=== PATIENT | female | born 1960 | race Caucasian/White ===

== ENCOUNTER → 2018-09-24 14:29 | Outpatient (CLI) | payer OTHER, SELFPAY ==
--- NOTE | 2018-09-24 | DI.MG.S_ITS ---
BILATERAL DIGITAL SCREENING MAMMOGRAM 3D/2D WITH CAD: 09/24/2018 CLINICAL: Routine screening. Comparison is made to exams dated: 11/24/2016 mammogram, 11/02/2015 mammogram, and 08/11/2014 mammogram - [facility]. The tissue of both breasts is heterogeneously dense. This may lower the sensitivity of mammography. Current study was also evaluated with a Computer Aided Detection (CAD) system. No significant masses, calcifications, or other findings are seen in either breast. There has been no significant interval change. IMPRESSION: NEGATIVE There is no mammographic evidence of malignancy. A 1 year screening mammogram is recommended. This exam was interpreted at Station ID: [id number]. NOTE: For mammograms, a report in lay terms will be sent to the patient. Approximately 15% of breast malignancies will not be visualized mammographically. In the management of a palpable breast mass, a negative mammogram must not discourage biopsy of a clinically suspicious lesion. Electronically Signed By: Humberto nation/oli:09/24/2018 16:54:14 letter sent: Normal Exam ACR BI-RADS Category 1: Negative 3341F
== END ==
PROVIDERS: PCP Nurse Practitioner Family; Visit Provider Nurse Practitioner Family
DX: Z12.31 Encounter for screening mammogram for malignant neoplasm of breast (principal)
CPT/HCPCS: 77063; 77067

== ENCOUNTER 2019-06-13 14:11 | Day surgery (SDC) | payer OTHER, SELFPAY ==
--- NOTE | 2019-06-13 08:15 | PM.OP.ENDO ---
Operative Date/Time/Diagnoses Date of procedure: 06/13/19 Time of procedure: 15:43 Pre-op diagnosis: 1. Family history of colon cancer 2. Colon cancer screening Post-op diagnosis: other (1. Normal colonoscopy, 2. External hemorrhoids) Procedure & Clinicians Study performed: Colonoscopy Same procedure as scheduled: Yes Indications: 1. Family history of colon cancer 2. Screening for colon cancer Surgeon: Mary Solomon Procedure Notes SCOAP/Timeout: 3:43 p.m. Procedure in detail: ENDOSCOPIST: Mary Solomon MD Sedation RN: Rajendra Rutherford RN Sedation start time: 3:44 p.m. Sedation end time: 4:10 p.m. PROCEDURE: Colonoscopy INDICATIONS: 1. Family history of colon cancer 2. Screening for colon cancer MEDICATION: Levsin 0.125 mg sublingual, incremental doses of Versed and fentanyl until appropriate level sedation achieved. ASA CLASS: 2 CECAL WITHDRAWAL TIME: 9 minutes COMPLICATIONS: None. EXTENT OF PROCEDURE: Cecum. QUALITY OF PREP: Good with portions of liquid stool. PROCEDURE: Prior to insertion of the colonoscope, a digital rectal examination was accomplished with circumferential palpation of the distal rectal mucosa, a large nonthrombosed external hemorrhoid was seen at the 6 o'clock position. The high-definition colonoscope was passed into the rectum in the usual fashion and advanced over to the cecum without difficulty. The ileocecal valve, appendiceal stoma, and medial wall all could be inspected and no abnormalities were seen. ASCENDING COLON: As the colonoscope was withdrawn, care was taken to expose and inspect the haustral folds and no abnormalities were seen. HEPATIC FLEXURE: Normal no polyps, diverticula, or other abnormalities. TRANSVERSE COLON: Normal no polyps, diverticula, or other abnormalities. DESCENDING COLON: Normal no polyps, diverticula, or other abnormalities. SIGMOID COLON: Normal no polyps, diverticula, or other abnormalities. RECTUM: Normal. J maneuver was produced. There was no significant perianal disease. The J maneuver was broken. The remainder of the rectum was inspected and there was no internal hemorrhoid disease. The scope was withdrawn. IMPRESSION: 1. Normal colonoscopy 2. External hemorrhoid, nonthrombosed, 6 o'clock position PLAN: 1. Repeat colonoscopy in 5 years secondary to family history of colon cancer. The possibility of a missed lesion including a malignancy has been discussed with the patient previously. Potential alarm symptoms have been discussed and should be reported immediately. Scope withdrawal time: 9 Sedation minutes: 26 Specimen(s): none sent Complications: none Impression: as above. Post-procedure Recommendations: Colonscopy in 5 years Follow up: as needed Disposition: PACU
[2019-06-13 14:30] VITALS: BP 110/70; PULSE 66; RESP 16; TEMP 36.6; O2SAT 100; BMI 29.1
[2019-06-13] MEDS: HYOSCYAMINE 0.125 MG TABLET PO (14:45)
[2019-06-13] MEDS: SODIUM CHLORIDE 0.9% 1,000 ML 200 ML IV (14:45)
[2019-06-13] MEDS: MIDAZOLAM 5 MG/ML VIAL 1 MG IV (15:42)
[2019-06-13] MEDS: fentaNYL 250 MCG/5 ML INJ IV (15:43)
[2019-06-13 16:23] VITALS: BP 96/57; PULSE 60; RESP 10; TEMP 36.4; O2SAT 93
[2019-06-13 16:24] VITALS: BP 94/56; PULSE 58; RESP 7; O2SAT 97
[2019-06-13 16:28] VITALS: BP 91/54; PULSE 57; RESP 14; O2SAT 100
[2019-06-13 16:31] VITALS: BP 100/46; PULSE 58; RESP 12; O2SAT 99
[2019-06-13 16:47] VITALS: BP 98/57; PULSE 57; RESP 14; TEMP 36.4; O2SAT 98
== END 2019-06-13 16:53 | disposition home or self-care (01) ==
PROVIDERS: PCP Nurse Practitioner Family; Referring Provider Student in an Organized Health Care Education/Training Program; Visit Provider Student in an Organized Health Care Education/Training Program
PROC: 0DJD8ZZ Inspection of Lower Intestinal Tract, Via Natural or Artificial Opening Endoscopic (ICD-10-PCS; CPT 45378; principal; 2019-06-13 16:00)
DX: Z12.11 Encounter for screening for malignant neoplasm of colon (principal); Z80.0 Family history of malignant neoplasm of digestive organs; K64.4 Residual hemorrhoidal skin tags
CPT/HCPCS: 45378; J2250; J3010

== ENCOUNTER → 2020-07-30 10:09 | Outpatient (CLI) | payer OTHER, SELFPAY ==
--- NOTE | 2020-07-30 | DI.US.S_ITS ---
PROCEDURE: US ABDOMEN LIMITED INDICATIONS: Asymptomatic menopausal state, LEFT FLANK MASS TECHNIQUE: Real-time focused scanning was performed of the abdomen, with image documentation. COMPARISON: None. FINDINGS: Scanning is performed at the area of clinical concern involving the left lower rib region. At this site, there is an ovoid lesion within the subcutaneous fat without abnormal vascularity that measures 2.2 x 0.8 x 0.7 cm. This lesion is slightly hyperechoic to the normal surrounding subcutaneous fat. IMPRESSION: These imaging findings are most compatible with a lipoma at the site of clinical concern. Dictated by: Marcos Lopez M.D. on 07/30/2020 at 10:07 Approved by: Marcos Lopez M.D. on 07/30/2020 at 10:08
--- NOTE | 2020-07-30 | DI.RAD.S_ITS ---
PROCEDURE: XR DEXA AXIAL SKELETON INDICATIONS: Asymptomatic menopausal state COMPARISON: None. FINDINGS: This blank DEXA report has been sent in error by the PACS system. The correct and complete report will be forthcoming in 1-2 days. Thank you for your patience and understanding. Dictated by: Devora Hernandez MD, PhD on 07/30/2020 at 13:28 Approved by: Devora Hernandez MD, PhD on 07/30/2020 at 13:28
== END ==
PROVIDERS: PCP Student in an Organized Health Care Education/Training Program; Referring Provider Student in an Organized Health Care Education/Training Program; Visit Provider Student in an Organized Health Care Education/Training Program
DX: R19.02 Left upper quadrant abdominal swelling, mass and lump (principal); Z78.0 Asymptomatic menopausal state
CPT/HCPCS: 76705; 77080

== ENCOUNTER → 2022-02-21 13:16 | Outpatient (CLI) | payer OTHER, SELFPAY ==
--- NOTE | 2022-02-21 | DI.MG.S_ITS ---
BILATERAL DIGITAL SCREENING MAMMOGRAM 3D/2D WITH CAD: 02/21/2022 CLINICAL: Routine screening. Comparison is made to exams dated: 07/13/2020 mammogram - [facility], 09/24/2018 mammogram, and 11/24/2016 mammogram - [facility]. Both breasts are heterogeneously dense, which may obscure small masses (category c / 51-75% glandular tissue). Current study was also evaluated with a Computer Aided Detection (CAD) system. No significant masses, calcifications, or other findings are seen in either breast. There has been no significant interval change. IMPRESSION: NEGATIVE There is no mammographic evidence of malignancy. A 1 year screening mammogram is recommended. Based on the Tyrer Cuzick model (a risk assessment model) the patient's lifetime risk is 7.7% and her 10 year risk is 3.6%. According to the ACR, ACS, and NCCN guidelines, an annual breast MRI exam along with mammogram is recommended if the patient's lifetime risk is 20% or greater. This exam was interpreted at Station ID: [id number]. NOTE: For mammograms, a report in lay terms will be sent to the patient. Approximately 15% of breast malignancies will not be visualized mammographically. In the management of a palpable breast mass, a negative mammogram must not discourage biopsy of a clinically suspicious lesion. Electronically Signed By: Ximena wong/oli:02/21/2022 13:40:13 letter sent: Normal Exam ACR BI-RADS Category 1: Negative 3341F
== END ==
PROVIDERS: PCP Internal Medicine; Referring Provider Internal Medicine; Visit Provider Internal Medicine
DX: Z12.31 Encounter for screening mammogram for malignant neoplasm of breast (principal)
CPT/HCPCS: 77063; 77067

== ENCOUNTER → 2023-03-28 08:57 | Outpatient (CLI) | payer MEDICARE, SELFPAY ==
--- NOTE | 2023-03-28 | DI.MG.S_ITS ---
BILATERAL DIGITAL SCREENING MAMMOGRAM 3D/2D WITH CAD: 03/28/2023 CLINICAL: Routine screening. Comparison is made to exams dated: 02/21/2022 mammogram - [facility], 07/13/2020 mammogram - [facility], and 09/24/2018 mammogram - [facility]. Both breasts are heterogeneously dense, which may obscure small masses (category c / 51-75% glandular tissue). Current study was also evaluated with a Computer Aided Detection (CAD) system. No significant masses, calcifications, or other findings are seen in either breast. There has been no significant interval change. IMPRESSION: NEGATIVE There is no mammographic evidence of malignancy. A 1 year screening mammogram is recommended. Based on the Tyrer Cuzick model (a risk assessment model) the patient's lifetime risk is 7.4% and her 10 year risk is 3.6%. According to the ACR, ACS, and NCCN guidelines, an annual breast MRI exam along with mammogram is recommended if the patient's lifetime risk is 20% or greater. This exam was interpreted at Station ID: [id number]. NOTE: For mammograms, a report in lay terms will be sent to the patient. Approximately 15% of breast malignancies will not be visualized mammographically. In the management of a palpable breast mass, a negative mammogram must not discourage biopsy of a clinically suspicious lesion. Electronically Signed By: Ximena wong/oli:03/30/2023 16:14:33 letter sent: Normal Exam ACR BI-RADS Category 1: Negative 3341F
== END ==
PROVIDERS: PCP Internal Medicine; Referring Provider Internal Medicine; Visit Provider Internal Medicine
DX: Z12.31 Encounter for screening mammogram for malignant neoplasm of breast (principal)
CPT/HCPCS: 77063; 77067

== ENCOUNTER → 2024-05-18 08:00 | Outpatient (CLI) | payer MEDICARE, SELFPAY ==
--- NOTE | 2024-05-18 | DI.MG.S_ITS ---
BILATERAL DIGITAL SCREENING MAMMOGRAM 3D/2D WITH CAD: 05/18/2024 CLINICAL: Routine screening. Comparison is made to exams dated: 03/28/2023 mammogram, 02/21/2022 mammogram - [facility], and 07/13/2020 mammogram - [facility]. There are scattered areas of fibroglandular density (category b / 25%-50% glandular tissue). Current study was also evaluated with a Computer Aided Detection (CAD) system. No significant masses, calcifications, or other findings are seen in either breast. There has been no significant interval change. IMPRESSION: NEGATIVE There is no mammographic evidence of malignancy. A 1 year screening mammogram is recommended. Based on the Tyrer Cuzick model (a risk assessment model) the patient's lifetime risk is 4.7% and her 10 year risk is 2.3%. According to the ACR, ACS, and NCCN guidelines, an annual breast MRI exam along with mammogram is recommended if the patient's lifetime risk is 20% or greater. This exam was interpreted at Station ID: [id number]. NOTE: For mammograms, a report in lay terms will be sent to the patient. Approximately 15% of breast malignancies will not be visualized mammographically. In the management of a palpable breast mass, a negative mammogram must not discourage biopsy of a clinically suspicious lesion. Electronically Signed By: Humberto nation/oli:05/18/2024 18:30:54 letter sent: Normal Exam ACR BI-RADS Category 1: Negative
== END ==
PROVIDERS: PCP Family Medicine; Referring Provider Internal Medicine; Visit Provider Internal Medicine
DX: Z12.31 Encounter for screening mammogram for malignant neoplasm of breast (principal)
CPT/HCPCS: 77063; 77067